=== PATIENT | male | born 2000 | race Caucasian/White ===

== ENCOUNTER 2023-09-29 09:19 | Emergency (ER) | payer MEDICAID, SELFPAY ==
[~2023-09-29] VITALS: Ht 177.8 cm; Wt 70.0 kg
[2023-09-29 09:21] VITALS: TEMP 99.4
[2023-09-29 13:25] LABS: BLOOD UREA NITROGEN 16 MG/DL (9-23); CALCIUM LEVEL 8.8 MG/DL (8.5-10.1); CARBON DIOXIDE LEVEL 28 MMOL/L (20-31); CHLORIDE LEVEL 105 MMOL/L (98-107); GLOMERULAR FILTRATION RATE > 60.0 (>60); GLUCOSE, FASTING 89 MG/DL (60-100); POTASSIUM SERUM 3.8 MMOL/L (3.5-5.1); SODIUM LEVEL 140 MMOL/L (136-145)
[2023-09-29 13:33] LABS: AMPHETAMINES LEVEL URINE NEGATIVE (NEGATIVE)
[2023-09-29 13:34] LABS: BARBITURATES URINE NEGATIVE (NEGATIVE); BENZODIAZEPINES URINE NEGATIVE (NEGATIVE); COCAINE METABOLITE URINE NEGATIVE (NEGATIVE); METHADONE URINE NEGATIVE (NEGATIVE); OPIATES URINE NEGATIVE (NEGATIVE); PHENCYCLIDINE URINE NEGATIVE (NEGATIVE)
[2023-09-29 13:35] LABS: CANNABINOIDS URINE POSITIVE (NEGATIVE)
[2023-09-29 13:54] VITALS: BP 122/74; O2SAT 98
== END 2023-09-29 13:55 | disposition home or self-care (01) ==
LOC: M ED 09:19
DX: R25.1 Tremor, unspecified (principal); F17.290 Nicotine dependence, other tobacco product, uncomplicated